=== PATIENT | male | born 1970 | race Caucasian/White ===

== ENCOUNTER 2016-05-10 06:07 | Day surgery (SDC) | payer OTHER ==
[~2016-05-10] VITALS: Ht 177.8 cm; Wt 86.2 kg
[2016-05-10 06:57] LABS: HEMATOCRIT 41.5 % (42.0-54.0); HEMOGLOBIN 14.3 g/dL (13.5-17.5); MCH 29.9 pg (26.0-34.0); MCHC 34.5 g/dL (31.0-37.0); MCV 86.6 fL (80.0-100.0); MEAN PLATELET VOLUME 9.4 fL (7.4-10.4); RBC 4.79 10x6/uL (4.20-6.10); RDW 13.5 % (11.5-14.5); WBC 9.9 10x3/uL (4.8-10.8)
[2016-05-10 07:05] LABS: APTT 25.5 SECONDS (22.8-39.4); INR 1.09 (0.85-1.17)
[2016-05-10] MEDS ORDERED: DULCOLAX5 MG PO (07:12)
[2016-05-10] MEDS ORDERED: DURAGESIC1 PATCH .3 (07:13)
[2016-05-10 07:14] LABS: ALKALINE PHOSPHATASE 103 U/L (46-116); ALT (SGPT) 60 U/L (10-68); BILIRUBIN - TOTAL 1.19 mg/dL (0.2-1.3); CALC OSMOLALITY 274 mosm/kg (275-300); CALCIUM 9.4 mg/dL (8.5-10.1); CARBON DIOXIDE 25.4 mmol/L (21.0-32.0); CHLORIDE - SERUM 102 mmol/L (98-107); GLUCOSE 101 mg/dL (74-106); POTASSIUM - SERUM 4.3 mmol/L (3.5-5.1); SODIUM 137 mmol/L (136-145); UREA NITROGEN 14 mg/dL (7-18); eGFR NON AFRICAN AMERICAN 85 mL/min (90-120)
[2016-05-10 07:25] VITALS: BP 124/87; Ht 177.8 cm; Wt 86.2 kg
--- NOTE | 2016-05-10 13:31 | NUR ---
THE PATIENT REPORTED HE HAD TO URINATE AND WAS PROVIDED A URINAL. THE PATIENT REQUESTED A BATHROOM SO THAT HE COULD STAND. THE PATIENT ALSO COMPLAINED OF SOME ANAL PAIN. THE PATIENT WAS OFFERED PAIN MEDICATION BUT DENIED IT AND REQUESTED TO BE TRANSPORTED BACK TO THE OUTPATIENT DEPT SO THAT HE COULD STAND UP AND USE THE TOLILET. SHORT STAY IN RECOVERY.
--- NOTE | 2016-05-10 14:30 | NUR ---
1415--PT COMPLAINS OF RECTAL PAIN, RATES PAIN 12/19. DILAUDID 2MG GIVEN PO, WILL CONTINUE TO MONITOR. SHELTON EASTON
--- NOTE | 2016-05-10 15:08 | NUR ---
1500--PT REPORTS PAIN IS BETTER, RATES PAIN /. IV DC'D, PT UP TO DRESS. SHELTON RN
--- NOTE | 2016-05-10 15:14 | NUR ---
1510--DISCHARGE INSTRUCTIONS GIVEN TO GUARDS, H&P AND OP NOTE INCLUDED ALONG WITH A COPY OF PT'S CHART. PT OFF UNIT VIA WC. SHELTON EASTON
--- NOTE | 2016-06-09 09:40 | OP ---
PATIENT NAME: CASSIE STOKES MEDICAL RECORD: [id number] :68 LOCATION:[facility] ADMISSION DATE: SURGEON: MANJULA ENG MD DATE OF OPERATION: 05/10/2016 PREOPERATIVE DIAGNOSIS: Anal fistula. POSTOPERATIVE DIAGNOSIS: High anal fistula. PROCEDURE: Anal evaluation under anesthesia with anal fistulotomy. SURGEON: Manjula Eng MD. MANUFACTURING SCHEDULER: None. BLOOD LOSS: Minimal. ANESTHESIA: General. COMPLICATIONS: None. The risks, possible complications and alternatives to the procedure were explained to the patient. He elects to proceed. OPERATIVE COURSE: The patient was conveyed to the operating room electively on . General anesthesia was induced by the anesthesia staff. The patient was placed in the lithotomy position with the buttocks taped laterally. A U-shaped anal retractors were placed. The patient had a mildly enlarged external hemorrhoids and mildly enlarged internal hemorrhoids. No fissure was noted. There was a fistula located at 10 o'clock. I was able to pass a fistula probe down through the fistula that entered very easily through an opening that was at the superior aspect of an internal hemorrhoid. I incised the skin as well as the musculature over the fistula probe. I then curetted out the fistulous tract. I then marsupialized the wound with a running locking 3-0 Vicryl Rapide suture. Gelfoam was applied within the anus and rectum. Marcaine was infiltrated into the perianal tissues for postoperative analgesia. A topical anesthetic cream was applied to the external hemorrhoids. No specific care will be necessary for this patient. An anesthetic anal cream may help with the pain if applied to his the external hemorrhoids. The suture is a dissolvable suture and will come out on its own. The packing should pass with his first bowel movement. He does not need to take Sitz baths. He can soak in a tub or take a shower. No suppositories should be inserted into his anus until the wound is completely healed, which will likely take about 3 months. If a followup appointment is necessary, I could see him at the [facility] when I go out there to perform in fci endoscopic procedures. TRANSINT:[id number] Voice Confirmation ID: [id number] DOCUMENT ID: [id number] CC: Dr. Rj Craig, unable to locate. OPERATIVE REPORT [id number] CASSIE STOKES ROBERT MD at 0940 CC: MANJULA ROE MD, RON WICK MD, PHAN ALFORD MD and [id number] L DICTATION DATE: 05/10/16 1307 IRRIGATION EQUIPMENT INSTALLER: 05/10/16 1439 [facility] 05/10/16 [place] [id number] [place] [id number]
--- NOTE | 2016-06-09 09:40 | HP ---
PATIENT: CASSIE STOKES MEDICAL RECORD: [id number] ACCOUNT: [id number] LOCATION:[place] : 68 ADMISSION DATE: 05/10/16 HISTORY AND PHYSICAL EXAMINATION HISTORY OF PRESENT ILLNESS: The patient has an anal fistula. I noted this on physical examination at the group home. He is here for an anal fistulotomy. The risks, possible complications and alternatives to procedure were explained to the patient. He elects to proceed. The risks include bleeding, which is an expected finding after this procedure, nonhealing of the fistula and possible need for additional fistula operations. He has never had an anal operation in the past. We discussed postoperative fecal incontinence as well as postoperative anal stenosis. Initially, he was resistant to undergo the procedure if he had to return to the [facility] right after surgery. I was able contacted Dr. Pauline Pedro, who stated that she would accept him back at the [facility] for postoperative analgesia. SOCIAL HISTORY: Nonsmoker. MEDICATIONS: None. Other than Dulcolax tablets. He is no longer on fentanyl citrate, that order had . ALLERGIES: No known drug allergies. PAST MEDICAL AND SURGICAL HISTORY: Hepatitis C, arthritis, jaw surgery and neck surgery. REVIEW OF SYSTEMS: Negative for coronary artery disease or hypertension. Negative for CVA or seizures. Negative for diabetes or thyroid problems. Review of systems is negative other than as is described above. PHYSICAL EXAMINATION: GENERAL: The patient does not appear acutely ill. He does appear chronically ill. VITAL SIGNS: Reviewed. HEAD: External ears appear normal. EYES: Extraocular movements are intact. NECK: Trachea is midline. ABDOMEN: Nontender. EXTREMITIES: No peripheral cyanosis. INTEGUMENT: There is an area that is pointing and is not draining. It is about 3-4 cm from the anal verge. It represents a fistula that is not yet ruptured. IMPRESSION: Anal fistula, likely with a concomitant perianal abscess. PLAN: Will be fistulotomy. TRANSINT:[id number] Voice Confirmation ID: [id number] DOCUMENT ID: [id number] HISTORY AND PHYSICAL [id number] CASSIE STOKES, MANJULA MAIN at 0940 CC: MANJULA ROE MD, RON WICK MD, PHAN ALFORD MD and [id number] Gideon DICTATION DATE: 05/10/16 1107 ANTHROPOLOGY PROFESSOR: 05/10/16 1355 [facility] 05/10/16 [place] [id number] [place] [id number]
== END 2016-05-10 15:10 | disposition home or self-care (01) ==
LOC: D.OPS 06:07
PROVIDERS: Anesthesiology
DX: K60.5 Anorectal fistula (principal); K64.8 Other hemorrhoids; K64.4 Residual hemorrhoidal skin tags; B19.20 Unspecified viral hepatitis C without hepatic coma; M19.90 Unspecified osteoarthritis, unspecified site